=== PATIENT | female | born 1950 | race Caucasian/White ===

== ENCOUNTER 2017-02-22 16:31 | Inpatient (IN) | payer MEDICARE ==
[~2017-02-22] VITALS: Ht 162.6 cm; Wt 72.6 kg
[2017-02-22 17:19] LABS: BASOPHILS % (AUTO) 0.9 % (0.0-2.0); EOSINOPHILS % (AUTO) 1.4 % (0.0-3.0); HEMATOCRIT 38.1 % (37.0-47.0); HEMOGLOBIN 12.4 G/DL (12.0-16.0); LYMPHOCYTES % (AUTO) 24.4 % (20.0-45.0); MEAN CORPUSCULAR VOLUME 96 FL (80-99); MONOCYTES % (AUTO) 6.8 % (1.0-10.0); NEUTROPHILS % (AUTO) 66.6 % (45.0-75.0); PLATELET COUNT 220 K/UL (150-450); RED BLOOD COUNT 3.96 M/UL (4.20-5.40); WHITE BLOOD COUNT 7.9 K/UL (4.8-10.8)
[2017-02-22 17:23] LABS: APPEARANCE,URINE CLEAR; BILIRUBIN, URINE NEGATIVE (NEGATIVE); COLOR,URINE PALE YELLOW; GLUCOSE, URINE (UA) NEGATIVE (NEGATIVE); KETONES,URINE NEGATIVE (NEGATIVE); LEUKOCYTE ESTERASE ,URINE NEGATIVE (NEGATIVE); NITRITE,URINE NEGATIVE (NEGATIVE); PH,URINE 7 (4.5-8.0); PROTEIN,URINE NEGATIVE (NEGATIVE); UROBILINOGEN,URINE NORMAL MG/DL (0.0-1.0)
[2017-02-22 17:52] LABS: ALKALINE PHOSPHATASE 59 U/L (46-116); ANION GAP 11 mmol/L (5-15); ASPARTATE AMINO TRANSFERASE 26 U/L (15-37); BILIRUBIN,TOTAL 0.4 MG/DL (0.2-1.0); BLOOD UREA NITROGEN 17 mg/dL (7-18); CALCIUM 9.3 MG/DL (8.5-10.1); CARBON DIOXIDE 26 MMOL/L (21-32); CHLORIDE 98 MMOL/L (98-107); CREATINE KINASE 47 U/L (26-308); POTASSIUM 3.6 MMOL/L (3.5-5.1); SODIUM 135 MMOL/L (136-145)
[2017-02-22 18:12] LABS: ALANINE AMINOTRANSFERASE 23 U/L (12-78); ALBUMIN 4.2 G/DL (3.4-5.0); CKMB 1.2 NG/ML (0.0-3.6); CREATININE 0.9 MG/DL (0.55-1.30)
[2017-02-22 18:30] VITALS: BP 170/76
[2017-02-22] MEDS ORDERED: ALPRAZolam 0.25mg tab ORAL ONE (18:45)
--- NOTE | 2017-02-22 18:48 | Diagnostic Imaging Report ---
Indication: Syncope. Technique: Continuous helical CT scanning of the head was performed utilizing automated exposure control without intravenous contrast material. Axial and coronal reconstructions were obtained. Comparison: None CT dose: Total DLP 1404.07 mGycm; CTDI vol 70.38 mGy Findings: There is no acute intracranial hemorrhage, mass effect or cortical edema. The ventricles, cisterns and sulci are normal for age. The posterior fossa and fourth ventricle are unremarkable. Sellar and suprasellar regions are grossly unremarkable. Visualized mastoid air cells are clear. There is mucosal thickening with frothy/bubbly secretions in the bilateral sphenoid sinuses and some ethmoid air cells. Mild mucosal thickening noted within the right maxillary sinus. No focal lesions of the bony calvarium or soft tissues of the scalp are seen. Impression: No evidence of acute intracranial hemorrhage, mass effect or cortical edema. MRI may be obtained for more sensitive evaluation as clinically indicated. Paranasal sinus disease. This corresponds with the statrad preliminary report. The CT scanner at [facility] is accredited by the [employer] and the scans are performed using protocols designed to limit radiation exposure to as low as reasonably achievable to attain images of sufficient resolution adequate for diagnostic evaluation.
[2017-02-22 21:20] VITALS: BP 150/76
--- NOTE | 2017-02-22 21:49 | Emergency Room Report ---
History of Present Illness General Chief Complaint: Generalized Weakness Source: Patient Present Illness HPI 66-year-old female presents ED for evaluation. States that at work she nearly passed out today. Denies LOC. States she feels weak. Denies any headaches blurry vision. Denies any nausea or vomiting. Denies chest pain or shortness of breath. Patient feels anxious. States her blood pressure is high. Denies alcohol or drug use. No other aggravating or leading factors. Denies any other associated symptoms Allergies: Coded Allergies: BACLOFEN (Verified Allergy, Unknown, 02/22/17) PERMETHRIN (Verified Allergy, Unknown, 02/22/17) Patient History Past Medical History: HTN, psych hx Past Surgical History: none Pertinent Family History: none Social History: Denies: smoking, alcohol use, drug use Now: No Immunizations: UTD Reviewed Nursing Documentation: PMH: Agreed, PSxH: Agreed Nursing Documentation-PMH Past Medical History: No History, Except For Hx Hypertension: Yes History Of Psychiatric Problem: Yes - ANXIETY Review of Systems All Other Systems: negative except mentioned in HPI Physical Exam Vital Signs Date Time Temp Pulse Resp B/P (MAP) Pulse Ox O2 Delivery O2 Flow Rate FiO2 02/22/17 16:37 97.3 83 20 192/80 99 Room Air Sp02 EP Interpretation: reviewed, normal General Appearance: no apparent distress, alert, GCS 15, non-toxic Head: normocephalic, atraumatic Eyes: bilateral eye normal inspection, bilateral eye PERRL ENT: hearing grossly normal, normal pharynx, no angioedema, normal voice Neck: full range of motion, supple/symm/no masses Respiratory: chest non-tender, lungs clear, normal breath sounds, speaking full sentences Cardiovascular #1: regular rate, rhythm, no edema Cardiovascular #2: 2+ carotid (R), 2+ carotid (L), 2+ radial (R), 2+ radial (L) , 2+ dorsalis pedis (R), 2+ dorsalis pedis (L) Gastrointestinal: normal bowel sounds, non tender, soft, non-distended, no guarding, no rebound Rectal: deferred Genitourinary: normal inspection, no CVA tenderness Musculoskeletal: back normal, gait/station normal, normal range of motion, non- tender Neurologic: alert, oriented x3, responsive, motor strength/tone normal, sensory intact, speech normal Psychiatric: judgement/insight normal, memory normal, no suicidal/homicidal ideation, anxious Reflexes: 3+ bicep (R), 3+ bicep (L), 3+ tricep (R), 3+ tricep (L), 3+ knee (R) , 3+ knee (L) Skin: normal color, no rash, warm/dry, well hydrated Lymphatic: no adenopathy Medical Decision Making Diagnostic Impression: Primary Impression: Syncope Qualified Codes: R55 - Syncope and collapse Additional Impression: Elevated troponin ER Course Hospital Course 66-year-old F presents ED s/p near syncopal episode. Differential diagnoses include: MD/unstable angina, arrythmia, dehydration, CVA/ TIA Clinical course Patient placed on stretcher. on community assistant. After initial history and physical I ordered labs, EKG, chest x-ray, IVFs, CT Brain labs reviewed- no leukocytosis, hemoglobin/hematocrit ok, electrolytes okay, troponins 0.085 EKG-NSR, no acute ischemic changes interpreted by me Chest x-ray- no acute process CT brain-unremarkable Case discussed with Dr. Williamson and he agreed to accept the patient to his service for further care and support I. I feel this is a highly complex case requiring extensive working including EKG/Rhythm strip, Xray/CT/US, Blood/urine lab work, repeat exams while in ED, and administration of strong opiates/narcotics for pain control, admission to hospital or close patient follow up. Diagnosis - syncope, elevated troponin admitted to telemetry in serious condition Labs Test 02/22/17 15:53 02/22/17 17:05 Urine Color Pale yellow Urine Appearance Clear Urine pH 7 (4.5-8.0) Urine Specific [place] 1.005 (1.005-1.035) Urine Protein Negative (NEGATIVE) Urine Glucose (UA) Negative (NEGATIVE) Urine Ketones Negative (NEGATIVE) Urine Occult Blood 3+ (NEGATIVE) Urine Nitrite Negative (NEGATIVE) Urine Bilirubin Negative (NEGATIVE) Urine Urobilinogen Normal MG/DL (0.0-1.0) Urine Leukocyte Esterase Negative (NEGATIVE) Urine RBC 2-4 /HPF (0 - 2) Urine WBC 0-2 /HPF (0 - 2) Urine Squamous Epithelial Cells Few /LPF (NONE/OCC) Urine Amorphous Sediment Few /LPF (NONE) Urine Bacteria Few /HPF (NONE) White Blood Count 7.9 K/UL (4.8-10.8) Red Blood Count 3.96 M/UL (4.20-5.40) Hemoglobin 12.4 G/DL (12.0-16.0) Hematocrit 38.1 % (37.0-47.0) Mean Corpuscular Volume 96 FL (80-99) Mean Corpuscular Hemoglobin 31.4 PG (27.0-31.0) Mean Corpuscular Hemoglobin Concent 32.6 G/DL (32.0-36.0) Red Cell Distribution Width 11.0 % (11.6-14.8) Platelet Count 220 K/UL (150-450) Mean Platelet Volume 7.0 FL (6.5-10.1) Neutrophils (%) (Auto) 66.6 % (45.0-75.0) Lymphocytes (%) (Auto) 24.4 % (20.0-45.0) Monocytes (%) (Auto) 6.8 % (1.0-10.0) Eosinophils (%) (Auto) 1.4 % (0.0-3.0) Basophils (%) (Auto) 0.9 % (0.0-2.0) Sodium Level 135 MMOL/L (136-145) Potassium Level 3.6 MMOL/L (3.5-5.1) Chloride Level 98 MMOL/L (98-107) Carbon Dioxide Level 26 MMOL/L (21-32) Anion Gap 11 mmol/L (5-15) Blood Urea Nitrogen 17 mg/dL (7-18) Creatinine 0.9 MG/DL (0.55-1.30) Estimat Glomerular Filtration Rate > 60 mL/min (>60) Glucose Level 109 MG/DL (74-106) Calcium Level 9.3 MG/DL (8.5-10.1) Total Bilirubin 0.4 MG/DL (0.2-1.0) Aspartate Amino Transf (AST/SGOT) 26 U/L (15-37) Alanine Aminotransferase (ALT/SGPT) 23 U/L (12-78) Alkaline Phosphatase 59 U/L (46-116) Total Creatine Kinase 47 U/L (26-308) Creatine Kinase MB 1.2 NG/ML (0.0-3.6) Creatine Kinase MB Relative Index 2.5 Troponin I 0.085 ng/mL (0.000-0.056) Pro-B-Type Natriuretic Peptide 58 pg/mL (0-125) Total Protein 7.8 G/DL (6.4-8.2) Albumin 4.2 G/DL (3.4-5.0) Globulin 3.9 g/dL EKG Diagnostic Results Rate: normal Rhythm: NSR ST Segments: no acute changes ASA given to the pt in ED: No Rhythm Strip Diag. Results EP Interpretation: yes Rhythm: NSR, no PVC's, no ectopy Chest X-Ray Diagnostic Results Chest X-Ray Diagnostic Results : Chest X-Ray Ordered: Yes # of Views/Limited/Complete: 1 View Indication: Other - syncope EP Interpretation: Yes Interpretation: no consolidation, no effusion, no pneumothorax, no acute cardiopulmonary disease Impression: No acute disease Electronically Signed by: Electronically signed by Aguilar Jameson MD CT/MRI/US Diagnostic Results CT/MRI/US Diagnostic Results : Imaging Test Ordered: CT Head Impression no acute process Last Vital Signs Date Time Temp Pulse Resp B/P (MAP) Pulse Ox O2 Delivery O2 Flow Rate FiO2 02/22/17 21:20 98.4 71 18 150/76 98 Room Air Status: improved Disposition: HOME, SELF-CARE Condition: Stable Scripts Unable to Obtain Active Prescriptions or Reported Meds Referrals: NON PHYSICIAN (PCP) AGUILAR JAMESON M.D. Feb 22, 2017 21:49
[2017-02-22] MEDS ORDERED: Mylanta II UD 30ml ORAL PRN (22:15)
[2017-02-22] MEDS ORDERED: Miralax 17gm pkt ORAL PRN (22:15)
[2017-02-22] MEDS ORDERED: Aspirin EC 325mg tab ORAL ONE (22:15)
[2017-02-23] VITALS: BP 142/82
[2017-02-23 01:41] VITALS: BP 127/78
[2017-02-23] MEDS: Heparin 5000 units/ml inj SUBQ SCH ×2 (09:00→20:14)
[2017-02-23] MEDS: Aspirin Baby 81mg ORAL SCH (09:18)
[2017-02-23] MEDS: Docusate 100mg cap ORAL SCH ×2 (09:18→20:11)
--- NOTE | 2017-02-23 10:32 | History and Physical ---
History of Present Illness General Date patient seen: Feb 23, 2017 Time patient seen: 10:31 Reason for Hospitalization: near syncope Present Illness HPI 66y/o female with pmh of HTN who presents with near syncope. Pt states she was sitting at her desk doing some work on her computer when she had sensation of almost passing out. She did not have LOC. Denies f/c, n/v, d/c, chest pain, SOB , abd pain, blurry vision, headache. Pt states she has had increased stress and anxiety lately related to her work. Allergies: Coded Allergies: BACLOFEN (Verified Allergy, Unknown, 02/22/17) PERMETHRIN (Verified Allergy, Unknown, 02/22/17) Medication History Scheduled Losartan Potassium* (Losartan Potassium*), 50 MG ORAL DAILY, (Reported) Patient History History Provided By: Patient, Family Member, Medical Record Healthcare decision maker Resuscitation status Full Code Advanced Directive on File No Past Medical/Surgical History Past Medical/Surgical History: (1) HTN (hypertension) Family History Family History: Patient reports no known family medical history. Social History Social History: (1) No significant social history Review of Systems ROS Narrative CONSTITUTIONAL: No weight loss, fever, chills, weakness or fatigue. HEENT: Eyes: No visual loss, blurred vision, double vision or yellow sclerae. Ears, Nose, Throat: No hearing loss, sneezing, congestion, runny nose or sore throat. SKIN: No rash or itching. CARDIOVASCULAR: No chest pain, chest pressure or chest discomfort. No palpitations or edema. RESPIRATORY: No shortness of breath, cough or sputum. GASTROINTESTINAL: No anorexia, nausea, vomiting or diarrhea. No abdominal pain or blood. NEUROLOGICAL: No headache, dizziness, syncope, paralysis, ataxia, numbness or tingling in the extremities. No change in bowel or bladder control. MUSCULOSKELETAL: No muscle, back pain, joint pain or stiffness. HEMATOLOGIC: No anemia, bleeding or bruising. LYMPHATICS: No enlarged nodes. No history of splenectomy. PSYCHIATRIC: No history of depression or anxiety. ENDOCRINOLOGIC: No reports of sweating, cold or heat intolerance. No polyuria or polydipsia. ALLERGIES: No history of asthma, hives, eczema or rhinitis. Physical Exam Physical Exam Narrative General: alert, cooperative, no distress, appears stated age Head: normocephalic, without obvious abnormality, atraumatic Eyes: conjunctivae/corneas clear. PERRL, EOM's intact Throat: lips, mucosa, and tongue normal. MMM Neck: supple, symmetrical, trachea midline, and no JVD Lungs: clear to auscultation bilaterally Heart: regular rate and rhythm, S1, S2 normal, no murmur, click, rub or gallop Abdomen: soft, non-tender, non-distended, bowel sounds normal; no masses or organomegaly Extremities: extremities normal, atraumatic, no cyanosis or edema Pulses: 2+ and symmetric Skin: skin color, texture, turgor normal; no rashes or lesions Neurologic: grossly normal, no focal deficits Last 24 Hour Vital Signs Date Time Temp Pulse Resp B/P (MAP) Pulse Ox O2 Delivery O2 Flow Rate FiO2 02/23/17 01:41 97.7 67 20 127/78 96 Room Air 02/23/17 00:00 97.0 71 20 142/82 96 02/22/17 22:10 98.4 71 18 150/76 98 Room Air 02/22/17 21:20 98.4 71 18 150/76 98 Room Air 02/22/17 18:30 90 17 170/76 100 Room Air 02/22/17 16:37 97.3 83 20 192/80 99 Room Air Intake and Output 02/22/17 02/23/17 19:00 07:00 Intake Total 1000 ml 516.25 ml Balance 1000 ml 516.25 ml Intake IV Total 1000 ml 516.25 ml # Voids 1 2 Laboratory Tests Test 02/22/17 15:53 02/22/17 17:05 02/22/17 23:00 Urine Color Pale yellow Urine Appearance Clear Urine pH 7 (4.5-8.0) Urine Specific [place] 1.005 (1.005-1.035) Urine Protein Negative (NEGATIVE) Urine Glucose (UA) Negative (NEGATIVE) Urine Ketones Negative (NEGATIVE) Urine Occult Blood 3+ (NEGATIVE) H Urine Nitrite Negative (NEGATIVE) Urine Bilirubin Negative (NEGATIVE) Urine Urobilinogen Normal MG/DL (0.0-1.0) Urine Leukocyte Esterase Negative (NEGATIVE) Urine RBC 2-4 /HPF (0 - 2) H Urine WBC 0-2 /HPF (0 - 2) Urine Squamous Epithelial Cells Few /LPF (NONE/OCC) Urine Amorphous Sediment Few /LPF (NONE) H Urine Bacteria Few /HPF (NONE) White Blood Count 7.9 K/UL (4.8-10.8) Red Blood Count 3.96 M/UL (4.20-5.40) L Hemoglobin 12.4 G/DL (12.0-16.0) Hematocrit 38.1 % (37.0-47.0) Mean Corpuscular Volume 96 FL (80-99) Mean Corpuscular Hemoglobin 31.4 PG (27.0-31.0) H Mean Corpuscular Hemoglobin Concent 32.6 G/DL (32.0-36.0) Red Cell Distribution Width 11.0 % (11.6-14.8) L Platelet Count 220 K/UL (150-450) Mean Platelet Volume 7.0 FL (6.5-10.1) Neutrophils (%) (Auto) 66.6 % (45.0-75.0) Lymphocytes (%) (Auto) 24.4 % (20.0-45.0) Monocytes (%) (Auto) 6.8 % (1.0-10.0) Eosinophils (%) (Auto) 1.4 % (0.0-3.0) Basophils (%) (Auto) 0.9 % (0.0-2.0) Sodium Level 135 MMOL/L (136-145) L Potassium Level 3.6 MMOL/L (3.5-5.1) Chloride Level 98 MMOL/L (98-107) Carbon Dioxide Level 26 MMOL/L (21-32) Anion Gap 11 mmol/L (5-15) Blood Urea Nitrogen 17 mg/dL (7-18) Creatinine 0.9 MG/DL (0.55-1.30) Estimat Glomerular Filtration Rate > 60 mL/min (>60) Glucose Level 109 MG/DL (74-106) H Calcium Level 9.3 MG/DL (8.5-10.1) Total Bilirubin 0.4 MG/DL (0.2-1.0) Aspartate Amino Transf (AST/SGOT) 26 U/L (15-37) Alanine Aminotransferase (ALT/SGPT) 23 U/L (12-78) Alkaline Phosphatase 59 U/L (46-116) Total Creatine Kinase 47 U/L (26-308) Creatine Kinase MB 1.2 NG/ML (0.0-3.6) Creatine Kinase MB Relative Index 2.5 Troponin I 0.085 ng/mL (0.000-0.056) 0.003 ng/mL (0.000-0.056) Pro-B-Type Natriuretic Peptide 58 pg/mL (0-125) Total Protein 7.8 G/DL (6.4-8.2) Albumin 4.2 G/DL (3.4-5.0) Globulin 3.9 g/dL Height (Feet): 5 Height (Inches): 4.00 Weight (Pounds): 160 Medications Current Medications Medications (Trade) Dose Ordered Sig/Tika Route PRN Reason Start Time Stop Time Status Last Admin Dose Admin Acetaminophen (Tylenol) 650 mg Q4H PRN ORAL Mild Pain (Pain Scale 1-3) 02/22/17 22:15 03/24/17 22:14 02/23/17 06:22 Acetaminophen (Tylenol) 650 mg Q4H PRN ORAL fever 02/22/17 22:15 03/24/17 22:14 Al Hydroxide/Mg Hydroxide (Mylanta II) 30 ml Q6H PRN ORAL dyspepsia 02/22/17 22:15 03/24/17 22:14 Aspirin (ASA) 81 mg DAILY ORAL 02/23/17 09:00 03/25/17 08:59 02/23/17 09:18 Bisacodyl (Dulcolax) 10 mg DAILYPRN PRN RECTAL Constipation 02/22/17 22:15 03/24/17 22:14 Dextrose (Dextrose 50%) STAT PRN IV Hypoglycemia 02/22/17 22:15 03/24/17 22:14 Docusate Sodium (Colace) 100 mg EVERY 12 HOURS ORAL 02/23/17 09:00 03/25/17 08:59 02/23/17 09:18 Heparin Sodium (Porcine) (Heparin 5000 units/ml) 5,000 units EVERY 12 HOURS SUBQ 02/23/17 09:00 03/25/17 08:59 Losartan Potassium (Cozaar) 50 mg DAILY ORAL 02/23/17 10:30 03/25/17 10:29 Ondansetron HCl (Zofran) 4 mg Q6H PRN IVP Nausea & Vomiting 02/22/17 22:15 03/24/17 22:14 Polyethylene Glycol (Miralax) 17 gm DAILYPRN PRN ORAL Constipation 02/22/17 22:15 03/24/17 22:14 Sodium Chloride 1,000 ml @ 75 mls/hr [id number] IVLG 02/22/17 23:07 03/24/17 23:06 02/22/17 23:07 Assessment/Plan Problem List: (1) Near syncope ICD Codes: R55 - Syncope and collapse SNOMED: 903781114 (2) Elevated troponin ICD Codes: R74.8 - Abnormal levels of other serum enzymes SNOMED: 898788012, 001632539, 012999609 (3) Accelerated junctional rhythm ICD Codes: I49.8 - Other specified cardiac arrhythmias SNOMED: 18680862, 727508588 (4) HTN (hypertension) ICD Codes: I10 - Essential (primary) hypertension SNOMED: 29494946 Status: stable Assessment/Plan Admit to obs Trend trop/EKG Cardiology consulted Check TTE Check orthostatic vitals Cont home losartan Check TSH, lipid panel Pain control, bowel regimen Supportive care DVT Prophylaxis: SCD Code Status: Full Hospital Classification Declaration: Based on this initial evaluation, and depending on the patient's clinical course, I anticipate that this patient will require hospitalization for 1-2 days for syncope eval and close respiratory/ hemodynamic monitoring. Disposition: Once the patient is stable to leave the hospital, I anticipate the patient will likely be discharged to the following environment: home vs home w/ hh Discussed with patient/family, nursing staff, SW/CM, cardiology regarding clinical status, treatment course, and disposition planning. Time of note may not reflect time of encounter. Natalie Jung M.D. Feb 23, 2017 10:31
[2017-02-23] MEDS: Losartan 50mg tab ORAL SCH (10:55)
[2017-02-23 11:33] LABS: BASOPHILS % (AUTO) 0.8 % (0.0-2.0); EOSINOPHILS % (AUTO) 3.8 % (0.0-3.0); HEMATOCRIT 37.5 % (37.0-47.0); HEMOGLOBIN 12.5 G/DL (12.0-16.0); LYMPHOCYTES % (AUTO) 37.2 % (20.0-45.0); MEAN CORPUSCULAR VOLUME 95 FL (80-99); MONOCYTES % (AUTO) 8.9 % (1.0-10.0); NEUTROPHILS % (AUTO) 49.2 % (45.0-75.0); PLATELET COUNT 220 K/UL (150-450); RED BLOOD COUNT 3.94 M/UL (4.20-5.40); RED CELL DISTRIBUTION WIDTH 11.2 % (11.6-14.8); WHITE BLOOD COUNT 4.5 K/UL (4.8-10.8)
--- NOTE | 2017-02-23 12:01 | Diagnostic Imaging Report ---
Indication: Dyspnea Comparison: None A single view chest radiograph was obtained. Findings: Cardiomediastinal appearance is within normal limits for age. Pulmonary vascularity is appropriate. The diaphragmatic contour is smooth and costophrenic angles are sharp. No pleural effusions are identified. The bones are unremarkable. Impression: No acute findings
[2017-02-23] MEDS ORDERED: LOSARTAN POTASS50 MG ORAL (12:08)
[2017-02-23 12:20] LABS: ANION GAP 8 mmol/L (5-15); BLOOD UREA NITROGEN 14 mg/dL (7-18); CALCIUM 9.2 MG/DL (8.5-10.1); CARBON DIOXIDE 26 MMOL/L (21-32); CHLORIDE 108 MMOL/L (98-107); CHOLESTEROL 202 MG/DL (< 200); CREATININE 0.7 MG/DL (0.55-1.30); HDL CHOLESTEROL 99 MG/DL (40-60); SODIUM 142 MMOL/L (136-145); TRIGLYCERIDES 53 MG/DL (30-150)
--- NOTE | 2017-02-23 16:08 | Cardiac Electrophysiology PN ---
Subjective Subjective [id number] Dictated Objective Last 24 Hour Vital Signs Date Time Temp Pulse Resp B/P (MAP) Pulse Ox O2 Delivery O2 Flow Rate FiO2 02/23/17 14:49 75 88 89 02/23/17 12:00 79 02/23/17 10:55 127/78 02/23/17 01:41 97.7 67 20 127/78 96 Room Air 02/23/17 00:00 97.0 71 20 142/82 96 02/22/17 22:10 98.4 71 18 150/76 98 Room Air 02/22/17 21:20 98.4 71 18 150/76 98 Room Air 02/22/17 18:30 90 17 170/76 100 Room Air 02/22/17 16:37 97.3 83 20 192/80 99 Room Air Intake and Output 02/22/17 02/23/17 19:00 07:00 Intake Total 1000 ml 516.25 ml Balance 1000 ml 516.25 ml Intake IV Total 1000 ml 516.25 ml # Voids 1 2 Laboratory Tests Test 02/22/17 17:05 02/22/17 23:00 02/23/17 10:30 White Blood Count 7.9 K/UL (4.8-10.8) 4.5 K/UL (4.8-10.8) L Red Blood Count 3.96 M/UL (4.20-5.40) L 3.94 M/UL (4.20-5.40) L Hemoglobin 12.4 G/DL (12.0-16.0) 12.5 G/DL (12.0-16.0) Hematocrit 38.1 % (37.0-47.0) 37.5 % (37.0-47.0) Mean Corpuscular Volume 96 FL (80-99) 95 FL (80-99) Mean Corpuscular Hemoglobin 31.4 PG (27.0-31.0) H 31.7 PG (27.0-31.0) H Mean Corpuscular Hemoglobin Concent 32.6 G/DL (32.0-36.0) 33.3 G/DL (32.0-36.0) Red Cell Distribution Width 11.0 % (11.6-14.8) L 11.2 % (11.6-14.8) L Platelet Count 220 K/UL (150-450) 220 K/UL (150-450) Mean Platelet Volume 7.0 FL (6.5-10.1) 8.0 FL (6.5-10.1) Neutrophils (%) (Auto) 66.6 % (45.0-75.0) 49.2 % (45.0-75.0) Lymphocytes (%) (Auto) 24.4 % (20.0-45.0) 37.2 % (20.0-45.0) Monocytes (%) (Auto) 6.8 % (1.0-10.0) 8.9 % (1.0-10.0) Eosinophils (%) (Auto) 1.4 % (0.0-3.0) 3.8 % (0.0-3.0) H Basophils (%) (Auto) 0.9 % (0.0-2.0) 0.8 % (0.0-2.0) Sodium Level 135 MMOL/L (136-145) L 142 MMOL/L (136-145) Potassium Level 3.6 MMOL/L (3.5-5.1) 4.0 MMOL/L (3.5-5.1) Chloride Level 98 MMOL/L (98-107) 108 MMOL/L (98-107) H Carbon Dioxide Level 26 MMOL/L (21-32) 26 MMOL/L (21-32) Anion Gap 11 mmol/L (5-15) 8 mmol/L (5-15) Blood Urea Nitrogen 17 mg/dL (7-18) 14 mg/dL (7-18) Creatinine 0.9 MG/DL (0.55-1.30) 0.7 MG/DL (0.55-1.30) Estimat Glomerular Filtration Rate > 60 mL/min (>60) > 60 mL/min (>60) Glucose Level 109 MG/DL (74-106) H 87 MG/DL (74-106) Calcium Level 9.3 MG/DL (8.5-10.1) 9.2 MG/DL (8.5-10.1) Total Bilirubin 0.4 MG/DL (0.2-1.0) Aspartate Amino Transf (AST/SGOT) 26 U/L (15-37) Alanine Aminotransferase (ALT/SGPT) 23 U/L (12-78) Alkaline Phosphatase 59 U/L (46-116) Total Creatine Kinase 47 U/L (26-308) Creatine Kinase MB 1.2 NG/ML (0.0-3.6) Creatine Kinase MB Relative Index 2.5 Troponin I 0.085 ng/mL (0.000-0.056) 0.003 ng/mL (0.000-0.056) 0.003 ng/mL (0.000-0.056) Pro-B-Type Natriuretic Peptide 58 pg/mL (0-125) Total Protein 7.8 G/DL (6.4-8.2) Albumin 4.2 G/DL (3.4-5.0) Globulin 3.9 g/dL Hemoglobin A1c 5.6 % (4.3-6.0) Triglycerides Level 53 MG/DL (30-150) Cholesterol Level 202 MG/DL (< 200) H LDL Cholesterol 101 mg/dL (<100) H HDL Cholesterol 99 MG/DL (40-60) H Cholesterol/HDL Ratio 2.0 (3.3-4.4) L Thyroid Stimulating Hormone (TSH) 2.507 uiU/mL (0.358-3.740) ALBERT RAMIREZ Feb 23, 2017 16:08
--- NOTE | 2017-02-23 20:30 | Consultation ---
DATE OF CONSULTATION: 02/23/2017 CARDIOLOGY CONSULTATION REFERRING PHYSICIAN: Sherron Alcaraz M.D. REASON FOR CONSULTATION: Near syncope. HISTORY OF PRESENT ILLNESS: The patient is a 66-year-old lady with history of hypertension and psychiatric history, who was brought to the emergency room after she had an episode of near syncope at work. The patient denies complete loss of consciousness. The patient who apparently was sitting with her family, felt like she is going to pass out. The patient denies any blurring of the vision. No nausea, vomiting, or chest pain or shortness of breath. She denies drinking alcohol or use any drugs. The patient stated that she was exhausted with her work and she feels that she was dehydrated. The patient was admitted and a Cardiology consultation was obtained for further evaluation and management. PAST MEDICAL HISTORY: 1. Hypertension. 2. Psychiatric history. FAMILY HISTORY: Noncontributory. SOCIAL HISTORY: She works as a , does not smoke or drink alcohol. PHYSICAL EXAMINATION: VITAL SIGNS: Blood pressure is was 152/76, pulse 75, respirations 18, and temperature 97.7. HEAD AND NECK: No JVD. LUNGS: Clear. CARDIOVASCULAR: Regular S1 and S2 with no gallop or murmur. ABDOMEN: Soft. EXTREMITIES: No pitting edema. LABORATORY AND DIAGNOSTIC DATA: Her EKG showed in junctional rhythm with negative P-wave in lead I, II, and III and aVF at rate of 78. P waves are negative in lead V3 through V6 as well. White count 4.5, hematocrit 12.5, hematocrit 37.5, and platelet count is 220. Sodium 142, potassium 4.0, BUN of 14, creatinine 0.7, and glucose of 60. Initial troponin was positive and two subsequent troponins were negative. ASSESSMENT AND PLAN: 1. Presyncope and initial troponin leak with two subsequent troponins are negative. The patient denies any chest pain. EKG does show active ischemic changes. We will get an echocardiogram and schedule the patient for a nuclear stress test in the morning. 2. Accelerated junctional rhythm with negative P waves in the inferior leads. Heart rate however was 78. The patient is off any AV turner blockers. 3. Hypertension. Continue Cozaar 50 mg daily. 4. Presyncope. Denies any syncopal episodes. We will get a nuclear stress test for further evaluation. Check orthostatic vital signs. Thank you very much, Dr. Alcaraz, for allowing me to participate in the care of this patient. Please do not hesitate to contact me for any questions regarding my evaluation. Kade Loomis M.D. DR: THOMAS JOB#: [id number] CC:
[2017-02-23 20:47] VITALS: BP 150/88
[2017-02-24 00:13] VITALS: BP 132/72
[2017-02-24 04:35] VITALS: BP 139/76
[2017-02-24] MEDS ORDERED: Lexiscan 0.4mg/5ml syringe IV SCH (06:00)
[2017-02-24 08:00] VITALS: BP 158/93
[2017-02-24] MEDS: Docusate 100mg cap ORAL SCH (08:33)
[2017-02-24] MEDS: Aspirin Baby 81mg ORAL SCH (08:33)
[2017-02-24] MEDS: Losartan 50mg tab ORAL SCH ×2 (08:35→13:17)
[2017-02-24] MEDS: Heparin 5000 units/ml inj SUBQ SCH (08:35)
[2017-02-24] MEDS ORDERED: Losartan 50mg tab ORAL SCH (09:00)
[2017-02-24 12:00] VITALS: BP 158/93
--- NOTE | 2017-02-24 13:15 | Cardiac Electrophysiology PN ---
Assessment/Plan Assessment/Plan 1. Presyncope and troponin leak with two subsequent troponins are negative. The patient denies any chest pain. EKG does show no active ischemic changes. Echocardiogram showed EF65%.Awaiting nuclear nuclear stress test report 2. Accelerated junctional rhythm with negative P waves in the inferior leads. Heart rate however was 78. No hx of SVT. 3. Hypertension. Continue Cozaar 50 mg daily. DW Son at bedside Subjective Subjective Just had stress test awaiting final results Objective Last 24 Hour Vital Signs Date Time Temp Pulse Resp B/P (MAP) Pulse Ox O2 Delivery O2 Flow Rate FiO2 02/24/17 08:00 97.3 74 19 158/93 98 Room Air 02/24/17 08:00 70 02/24/17 04:38 68 76 02/24/17 04:35 97.7 68 18 139/76 95 Room Air 02/24/17 04:00 73 02/24/17 00:13 97.8 65 18 132/72 98 Room Air 02/24/17 00:00 69 02/23/17 20:47 97.2 66 18 150/88 97 Room Air 02/23/17 20:00 63 02/23/17 16:00 72 02/23/17 14:49 75 88 89 Intake and Output 02/23/17 02/24/17 19:00 07:00 Intake Total 1252 ml 1065 ml Output Total 400 ml Balance 1252 ml 665 ml Intake Oral 472 ml 240 ml IV Total 780 ml 825 ml Output Urine Total 400 ml # Voids 2 1 Objective HEAD AND NECK: No JVD. LUNGS: Clear. CARDIOVASCULAR: Regular S1 and S2 with no gallop or murmur. ABDOMEN: Soft. EXTREMITIES: No pitting edema. ALBERT RAMIREZ Feb 24, 2017 13:15
[2017-02-24 16:00] VITALS: BP 153/104
--- NOTE | 2017-02-24 16:22 | Physician Query ---
PLEASE COMPLETE THE DOCUMENT BEFORE SIGNING Dear Natalie Barron Date: 02/24/17 Cookie Breaker/CDS Name: Daniel Osman Cookie Breaker / CDS Phone #[phone] Exercise your independent professional judgment when responding to query. Question asked do not imply a particular answer is desired/expected Clinical Documentation States: "Near Syncope" documented in H & P (02/23/17) Clinical Findings Show:H & P Elevated troponin - 0.085, 0.003 Accelerated junctional rhythm HTN (hypertension): BP - 192/86, 170/76, 150/76 Hyponatremia - trend BMP,possibly 2/2 hypovolemia - Sodium - 135 (IV Hydration: Sodium Chloride - 1000 ml 75 ml/hr) Please specify the cause: [] Autonomic Imbalance [] Orthostatic Hypotension [] Shock [] Dehydration [] Heat [] Other: [x] Unable to determine Condition Present on Admission: [x] Yes [] No []Clinically Undeterminable Please also document in your Progress Notes and/or Discharge Summary and indicate if the condition was present on admission. Natalie Jung MD Date/Time [facility]
--- NOTE | 2017-02-24 19:34 | Diagnostic Imaging Report ---
Indication: Chest pain Technique: The study was conducted under the supervision of a gasoline engine assembler. Treadmill stress test was performed with the patient exercising according to the Chandra protocol of until symptoms limited further exertion. One minute before termination of exertion, intravenous administration of 30.8 mCi of technetium 99m Myoview was performed. Three plane SPECT imaging of the heart was then performed. A resting study was performed as part of the one-day protocol with 10 mCi of technetium 99m Myoview injected intravenously at that time. Three plane SPECT imaging of the heart was obtained. Comparison: None Clinical data: 1. Clinical response to exercise stress: Non ischemic 2. Electrocardiographic response to exercise stress: Non ischemic Findings: The myocardial perfusion scan demonstrates no fixed or reversible perfusion defects. LVEF estimated at 82% which is likely overestimated. IMPRESSION: Negative myocardial perfusion scan
--- NOTE | 2017-02-25 15:30 | Cardiology Report ---
APPROVED REPORT EKG Measurement Heart [id number] Sinusl rhythm Septal infarct, age undetermined Abnormal ECG
--- NOTE | 2017-02-27 11:15 | Cardiology Report ---
APPROVED REPORT EXAM: Two-dimensional and M-mode echocardiogram with Doppler and color Doppler. INDICATION SYNCOPE M-Mode DIMENSIONS IVSd0.9 (0.7-1.1cm)Left Atrium (MM)2.3 (1.6-4.0cm) LVDd4.4 (3.5-5.6cm)Aortic Root3.6 (2.0-3.7cm) PWd1.2 (0.7-1.1cm)Aortic Cusp Exc.1.9 (1.5-2.0cm) IVSs1.7 cm LVDs2.7 (2.5-4.0cm) PWs1.4 cm Normal left ventricular chamber size, systolic function and wall motion. Left ventricular ejection fraction estimated to be 65-70 %. No evidence of left ventricular hypertrophy. No evidence of pericardial effusion . All other cardiac chamber sizes are within normal limits. Focal aortic valve sclerosis with adequate cusp excursion. Mild Thickened mitral valve leaflets with normal excursion. Mild Mitral annulus and aortic root calcification. Pulmonic valve not well visualized. Normal tricuspid valve structure. IVC at normal size with physiologic collapse. A color flow and spectral Doppler study was performed and revealed: No aortic regurgitation. Trace mitral regurgitation. Mitral diastolic velocities suggest reduced left ventricular relaxation c/w mild LV diastolic dysfunction (Grade I ). Trace tricuspid regurgitation. Tricuspid systolic velocities suggests peak right ventricular systolic pressure of 15 mmHg No Pulmonic regurgitation present.
--- NOTE | 2017-02-28 21:57 | Discharge Summary ---
Discharge Summary Hospital Course Date of Admission Feb 22, 2017 at 21:35 Date of Discharge Feb 24, 2017 at 19:35 Admitting Diagnosis SYNCOPE Reason for Hospitalization: Syncope, elevated troponin HPI 66y/o female with pmh of HTN who presents with near syncope. Pt states she was sitting at her desk doing some work on her computer when she had sensation of almost passing out. She did not have LOC. Denies f/c, n/v, d/c, chest pain, SOB , abd pain, blurry vision, headache. Pt states she has had increased stress and anxiety lately related to her work. Consultations Cardiology Hospital Course Pt was admitted to [facility]. Trop peaked at 0.085. Pt was seen by cardiology. TTE showed normal EF. Cardiac stress test was unremarkable. Pt had no further presyncope or syncopal episodes. Unclear etiology of near syncope--likely multifactorial in setting of dehydration (pt notes poor PO intake), anxiety/ stress, BP med. Prior to d/c she was HD stable, tolerating PO, and ambulating w/ o assistance. Discharge physical exam: General: alert, cooperative, no distress, appears stated age Head: normocephalic, without obvious abnormality, atraumatic Eyes: conjunctivae/corneas clear. PERRL, EOM's intact Throat: lips, mucosa, and tongue normal. MMM Neck: supple, symmetrical, trachea midline, and no JVD Lungs: clear to auscultation bilaterally Heart: regular rate and rhythm, S1, S2 normal, no murmur, click, rub or gallop Abdomen: soft, non-tender, non-distended, bowel sounds normal; no masses or organomegaly Extremities: extremities normal, atraumatic, no cyanosis or edema Pulses: 2+ and symmetric Skin: skin color, texture, turgor normal; no rashes or lesions Neurologic: grossly normal, no focal deficits Discharge Medications Continued Medications: Losartan Potassium* (Losartan Potassium*) 50 Mg Tablet 50 MG ORAL DAILY, TAB Discharge Condition Upon Discharge: stable Discharge Disposition Patient was discharged to Home (01) Discharge Diagnoses: (1) Near syncope (2) Elevated troponin (3) Accelerated junctional rhythm (4) Hyponatremia (5) HTN (hypertension) Natalie Jung M.D. Feb 28, 2017 21:57
== END 2017-02-24 19:35 | disposition home or self-care (01) | DRG 312 ==
LOC: EMR 16:50 → EDBEDREQ 21:11 → 2E 21:35
DX: R55 Syncope and collapse (principal); E87.1 Hypo-osmolality and hyponatremia; I10 Essential (primary) hypertension; E86.0 Dehydration; I49.8 Other specified cardiac arrhythmias; R74.8 Abnormal levels of other serum enzymes; Z88.8 Allergy status to other drugs, medicaments and biological substances
CPT/HCPCS: 36415; 70450; 71045; 78452; 80048; 80053; 80061; 81003; 82550; 82553; 83036; 83880; 84443; 84484; 85025; 93005; 93017; 93306; 99285; J2785